=== PATIENT | female | born 1990 | race Caucasian/White ===

== ENCOUNTER 2020-10-03 13:03 | Emergency (ER) | payer OTHER ==
[~2020-10-03] VITALS: Ht 170.2 cm; Wt 81.8 kg
[2020-10-03 13:09] VITALS: BP 143/64; TEMP 98.7
[2020-10-03 14:44] LABS: COLLECTION METHOD CLEAN CATCH
[2020-10-03 14:51] LABS: MUCOUS Present /lpf; PH 5 (5-8); SQUAMOUS EPITHELIAL 0-2 /hpf; URINE APPEARANCE Clear; URINE BACTERIA None Seen /hpf; URINE BILIRUBIN Negative (NEGATIVE); URINE BLOOD Negative (NEGATIVE); URINE COLOR Yellow; URINE GLUCOSE Negative (NEGATIVE); URINE KETONE Trace (NEGATIVE); URINE LEUKOCYTE ESTERASE Negative (NEGATIVE); URINE NITRATE Negative (NEGATIVE); URINE PROTEIN(semi-quant) Negative (NEGATIVE); URINE RBC 0-2 /hpf; URINE UROBILINOGEN Negative (NEGATIVE)
[2020-10-03 15:09] LABS: ALBUMIN 4.7 gm/dL (3.5-5.0); BILIRUBIN,TOTAL 0.5 mg/dL (0.0-1.0); CALCIUM 9.4 mg/dL (8.4-10.2); CREATININE, serum 0.69 (0.52-1.25); POTASSIUM 3.8 mmol/L (3.4-5.0); TOTAL PROTEIN 8.5 gm/dL (6.4-8.2)
[2020-10-03 15:11] LABS: BASO # 0.1 (0.0-0.2); BASO % 0.7 % (0.0-2.0); EOS # 0.2 (0.0-0.7); EOS % 1.9 % (0-4.0); GRAN # 5.8 (1.4-6.5); GRAN % 63.2 % (42.2-75.2); HEMATOCRIT 42.6 % (37.0-47.0); HEMOGLOBIN 13.7 g/dl (12.5-16.0); LYMPH # 2.4 (1.2-3.4); LYMPH % 25.9 % (20.0-51.0); MEAN CELL VOLUME 79 fl (80.0-100.0); MEAN CORPUSCULAR HEMOGLOBIN 25 pg (27.0-31.0); MEAN CORPUSCULAR HGB CONC 32 g/dl (33.0-37.0); MEAN PLATELET VOLUME 9.6 fl (7.4-10.4); MONO # 0.7 (0.1-0.6); MONO % 8.1 % (1.7-9.3); PLATELET COUNT 275 K/mm3 (130-400); RED BLOOD COUNT 5.39 M/mm3 (4.10-5.30); REDCELL DISTRIBUTION WIDTH-CV 14.3 % (11.5-14.5)
[2020-10-03 15:40] LABS: THYROID STIMULATING HORMONE 0.526 uIU/mL (0.465-4.680)
[2020-10-03 15:50] LABS: ERYTHROCYTE SEDIMENTATION RATE 5 mm/hr (0-20)
[2020-10-03 16:26] VITALS: PULSE 100
[2020-11-08] MEDS ORDERED: PREDFORTE10ML OU (09:44)
== END 2020-10-03 16:27 | disposition home or self-care (01) ==
LOC: COL.ER 13:03 → EDBD 13:05 → COL.ER 16:27
PROVIDERS: Nurse Practitioner
DX: R42 Dizziness and giddiness (principal)

== ENCOUNTER 2020-10-20 19:37 | Emergency (ER) | payer OTHER ==
[~2020-10-20] VITALS: Ht 170.2 cm; Wt 79.5 kg
[2020-10-20 20:38] LABS: BASO % 0.6 % (0.0-2.0); EOS # 0.1 (0.0-0.7); EOS % 1.5 % (0-4.0); GRAN # 3.4 (1.4-6.5); GRAN % 65.1 % (42.2-75.2); HEMATOCRIT 46.3 % (37.0-47.0); LYMPH # 1.2 (1.2-3.4); LYMPH % 22.8 % (20.0-51.0); MEAN CELL VOLUME 79 fl (80.0-100.0); MEAN CORPUSCULAR HEMOGLOBIN 26 pg (27.0-31.0); MEAN CORPUSCULAR HGB CONC 32 g/dl (33.0-37.0); MEAN PLATELET VOLUME 9.8 fl (7.4-10.4); MONO # 0.5 (0.1-0.6); MONO % 9.8 % (1.7-9.3); PLATELET COUNT 250 K/mm3 (130-400); RED BLOOD COUNT 5.85 M/mm3 (4.10-5.30); REDCELL DISTRIBUTION WIDTH-CV 14.1 % (11.5-14.5)
[2020-10-20 20:49] LABS: BILIRUBIN,TOTAL 0.4 mg/dL (0.0-1.0); CREATININE, serum 0.86 (0.52-1.25); POTASSIUM 3.4 mmol/L (3.4-5.0)
[2020-10-20 22:21] LABS: COLLECTION METHOD CLEAN CATCH
[2020-10-20 22:30] LABS: MUCOUS Present /lpf; PH 5 (5-8); URINE APPEARANCE Hazy; URINE BACTERIA Rare /hpf; URINE BILIRUBIN Negative (NEGATIVE); URINE BLOOD Negative (NEGATIVE); URINE COLOR Amber; URINE GLUCOSE Negative (NEGATIVE); URINE KETONE Trace (NEGATIVE); URINE LEUKOCYTE ESTERASE Negative (NEGATIVE); URINE NITRATE Negative (NEGATIVE); URINE PROTEIN(semi-quant) 1+ (NEGATIVE); URINE UROBILINOGEN Negative (NEGATIVE)
[2020-10-20 22:48] VITALS: BP 118/64; PULSE 88; TEMP 98
[2020-11-08] MEDS ORDERED: PREDFORTE10ML OU (09:44)
== END 2020-10-20 22:49 | disposition home or self-care (01) ==
LOC: COL.ER 19:37
PROVIDERS: Emergency Medicine
DX: R19.7 Diarrhea, unspecified (principal); Z20.822 Contact with and (suspected) exposure to COVID-19
CPT/HCPCS: J7030

== ENCOUNTER → 2020-10-25 | Outpatient (CLI) | payer OTHER ==
[~2020-10-25] MED LIST: PREDFORTE10ML OU
== END ==
LOC: COL.RAD 09:52
DX: G93.5 Compression of brain (principal); R26.89 Other abnormalities of gait and mobility
CPT/HCPCS: A9585

== ENCOUNTER → 2020-11-23 | Outpatient (CLI) | payer OTHER | LOC: COL.RAD 11:55 | DX: R42 Dizziness and giddiness (principal); R51.9 Headache, unspecified ==

== ENCOUNTER → 2021-01-25 | Outpatient (CLI) | payer OTHER | LOC: COL.RAD 08:09 | DX: R91.1 Solitary pulmonary nodule (principal) ==

== ENCOUNTER → 2021-02-04 | Outpatient (CLI) | payer OTHER | LOC: COL.RAD 01-30 15:30 | DX: G89.29 Other chronic pain (principal); M54.5 Low back pain ==